=== PATIENT | female | born 1985 | race Caucasian/White ===

== ENCOUNTER 2018-01-31 19:58 | Outpatient (CLI) | payer MEDICAID | END 2018-01-31 23:15 | disposition home or self-care (01) | LOC: OBT 19:58 → L-D 19:59 | DX: O24.410 Gestational diabetes mellitus in pregnancy, diet controlled (principal); O99.283 Endocrine, nutritional and metabolic diseases complicating pregnancy, third trimester; E03.9 Hypothyroidism, unspecified; Z3A.38 38 weeks gestation of pregnancy | CPT/HCPCS: 76818 ==

== ENCOUNTER 2018-02-05 07:22 | Inpatient (IN) | payer MEDICAID ==
[2018-02-05] MEDS ORDERED: MISOPROSTOL 200 MCG TAB PR ×2 (07:30→09:30)
[2018-02-05] MEDS ORDERED: METHYLERGONOVINE 0.2 MG INJ IM (07:30)
[2018-02-05] MEDS ORDERED: CARBOPROST 250 MCG INJ IM (07:30)
[2018-02-05] MEDS ORDERED: OXYTOCIN 30 UNITS/LR 500 ML IV (07:30)
[2018-02-05 07:50] LABS: ADD MAN DIFF? NO
[2018-02-05 07:56] LABS: BASOPHILS % 0.4 % (0.0-2.0); EOSINOPHILS # 0.1 10^3/ul (0.0-0.5); EOSINOPHILS % 0.8 % (0.0-7.0); HEMATOCRIT 40.7 % (37.0-47.0); HEMOGLOBIN 13.6 g/dl (12.0-16.0); LYMPHOCYTES # 1.8 10^3/ul (0.8-2.9); LYMPHOCYTES % 25.1 % (15.0-51.0); MEAN CORPUSCULAR HEMOGLOBIN 31.3 pg (29.0-33.0); MEAN CORPUSCULAR HGB CONC 33.4 g/dl (32.0-37.0); MEAN CORPUSCULAR VOLUME 93.8 fl (82.0-101.0); MEAN PLATELET VOLUME 11.1 fl (7.4-10.4); MONOCYTE # 0.5 10^3/ul (0.3-0.9); MONOCYTES % 6.4 % (0.0-11.0); NEUTROPHIL # 4.9 10^3/ul (1.6-7.5); NEUTROPHILS % 66.9 % (39.0-77.0); PLATELET COUNT 216 10^3/UL (140-415); RED BLOOD COUNT 4.34 10^6/ul (4.20-5.40); RED CELL DISTRIBUTION WIDTH 13.2 % (11.5-14.5)
[2018-02-05 07:56] LABS: WHITE BLOOD COUNT 7.3 10^3/ul (4.8-10.8)
[2018-02-05] MEDS ORDERED: AMPICILLIN 2 GM/NS (PMX) 100 ML (08:11)
[2018-02-05] MEDS: LACTATED RINGER'S 1,000 ML IV ×3 (08:18→22:17)
[2018-02-05] MEDS: AMPICILLIN 2 GM/NS (PMX) 100 ML IVPB (08:18)
[2018-02-05] MEDS: BUTORPHANOL 2 MG INJ IV (08:23)
[2018-02-05 08:51] LABS: HEPATITIS B SURFACE ANTIGEN NEGATIVE (NEGATIVE)
[2018-02-05] MEDS ORDERED: morphine SULFATE/PF (10 MG/10 ML) INJ (08:59)
[2018-02-05] MEDS ORDERED: BUPIVACAINE 0.75%/DEXT (SPINAL) 2 ML INJ (08:59)
[2018-02-05] MEDS ORDERED: PHENYLephrine (100 MCG/ML) 5ML SYG (08:59)
[2018-02-05] MEDS ORDERED: OXYTOCIN 10 UNIT INJ (08:59)
[2018-02-05] MEDS ORDERED: OXYCODONE/ACETAMINOPHEN (5/325) TAB PO ×2 (09:30)
[2018-02-05] MEDS ORDERED: NA PHOSPHATE/BIPHOS 133 ML ENEMA PR (09:30)
[2018-02-05 09:47] LABS: PT RATIO 0.9
[2018-02-05 09:48] LABS: INR 0.84; PARTIAL THROMBOPLASTIN TIME 23.8 Sec (25.0-35.0); PROTIME 11.6 Sec (11.9-14.9)
[2018-02-05] MEDS: CITRIC ACID/NA CITRATE 30 ML CUP PO (10:36)
[2018-02-05] MEDS: ONDANSETRON 4 MG INJ IV (10:36)
[2018-02-05] MEDS ORDERED: KETOROLAC 30 MG INJ (11:35)
[2018-02-05] MEDS ORDERED: METOCLOPRAMIDE 10 MG INJ (11:35)
[2018-02-05] MEDS ORDERED: DEXAMETHASONE 4 MG/ML 1 ML INJ (11:35)
[2018-02-05] MEDS ORDERED: ONDANSETRON 4 MG INJ (11:35)
[2018-02-05] MEDS: CEFAZOLIN 2 GM/50 ML (PMX) 50 ML IV (11:52)
[2018-02-05] MEDS: IBUPROFEN 600 MG TAB PO ×2 (12:00→22:17)
[2018-02-05] MEDS ORDERED: morphine 2 MG INJ IV ×2 (12:30)
[2018-02-05] MEDS ORDERED: DIPHENHYDRAMINE 50 MG INJ IV (12:30)
[2018-02-05] MEDS ORDERED: ACETAMINOPHEN 500 MG TAB PO (12:30)
[2018-02-05] MEDS ORDERED: NALBUPHINE HCL (10 MG/1 ML) INJ IV (12:30)
[2018-02-05] MEDS ORDERED: ONDANSETRON 4 MG INJ IV (12:30)
[2018-02-05] MEDS ORDERED: ZOLPIDEM 5 MG TAB PO (12:30)
[2018-02-05] MEDS ORDERED: HYDROmorphONE 0.5 MG/0.5 ML SYG IV ×2 (12:30)
[2018-02-05] MEDS ORDERED: NALOXONE (0.4 MG/ML) INJ IV (12:30)
[2018-02-05] MEDS: OXYTOCIN 30 UNITS/LR 500 ML IV (15:54)
[2018-02-05 18:39] LABS: RAPID PLASMA REAGIN NONREACTIVE (NR)
[2018-02-05] MEDS: SENNA/DOCUSATE NA (8.6MG/50MG) TAB PO (21:00)
[2018-02-06] MEDS: OXYTOCIN 30 UNITS/LR 500 ML IV (00:08)
[2018-02-06] MEDS: LACTATED RINGER'S 1,000 ML IV (04:39)
[2018-02-06] MEDS: IBUPROFEN 600 MG TAB PO ×5 (06:00→23:40)
[2018-02-06 08:05] LABS: ADD MAN DIFF? NO
[2018-02-06 08:09] LABS: BASOPHILS % 0.3 % (0.0-2.0); EOSINOPHILS % 0.2 % (0.0-7.0); HEMATOCRIT 31.8 % (37.0-47.0); HEMOGLOBIN 10.7 g/dl (12.0-16.0); LYMPHOCYTES # 1.8 10^3/ul (0.8-2.9); LYMPHOCYTES % 20.3 % (15.0-51.0); MEAN CORPUSCULAR HGB CONC 33.6 g/dl (32.0-37.0); MEAN CORPUSCULAR VOLUME 95.2 fl (82.0-101.0); MEAN PLATELET VOLUME 11.2 fl (7.4-10.4); MONOCYTE # 0.7 10^3/ul (0.3-0.9); MONOCYTES % 7.5 % (0.0-11.0); NEUTROPHIL # 6.4 10^3/ul (1.6-7.5); NEUTROPHILS % 71.3 % (39.0-77.0); PLATELET COUNT 173 10^3/UL (140-415); RED BLOOD COUNT 3.34 10^6/ul (4.20-5.40); RED CELL DISTRIBUTION WIDTH 13.2 % (11.5-14.5)
[2018-02-06] MEDS: SENNA/DOCUSATE NA (8.6MG/50MG) TAB PO ×2 (09:06→21:00)
[2018-02-06] MEDS: KETOROLAC 30 MG INJ IV (10:32)
[2018-02-06] MEDS: HYDROCODONE/APAP (5/325) TAB PO ×2 (15:22→23:40)
[2018-02-06] MEDS: LANOLIN 7 GM TUBE TOP (17:30)
[2018-02-07] MEDS: IBUPROFEN 600 MG TAB PO ×3 (05:42→17:43)
[2018-02-07] MEDS: HYDROCODONE/APAP (5/325) TAB PO ×2 (05:42→15:10)
[2018-02-07] MEDS: SENNA/DOCUSATE NA (8.6MG/50MG) TAB PO ×2 (08:31→21:30)
[2018-02-08] MEDS: IBUPROFEN 600 MG TAB PO ×3 (00:16→11:59)
[2018-02-08] MEDS: MEASLES,MUMPS,RUBELLA VACCINE INJ SC* (09:00)
[2018-02-08] MEDS: SENNA/DOCUSATE NA (8.6MG/50MG) TAB PO (09:00)
[2018-02-08] MEDS: DIPHTH/TET/ACEL PERTUSS (ADULT) 0.5 ML VIAL IM* (16:28)
== END 2018-02-08 17:30 | disposition home or self-care (01) | DRG 766 ==
LOC: L-D 07:22 → PP1 16:03
PROVIDERS: Specialist
PROC: 10D00Z1 Extraction of Products of Conception, Low, Open Approach (ICD-10-PCS; principal; 2018-02-05 09:00)
PROC: 0UB70ZZ Excision of Bilateral Fallopian Tubes, Open Approach (ICD-10-PCS; 2018-02-05 09:00)
DX: O24.429 Gestational diabetes mellitus in childbirth, unspecified control (principal); Z37.0 Single live birth; Z3A.39 39 weeks gestation of pregnancy; O34.219 Maternal care for unspecified type scar from previous cesarean delivery; Z30.2 Encounter for sterilization
CPT/HCPCS: 85025; 85610; 85730; 86592; 86850; 86900; 86901; 87340; 88302; 90715; 99464